=== PATIENT | male | born 1970 | race American Indian/Alaskan Native ===

== ENCOUNTER 2016-08-27 11:28 | Emergency (ER) | payer MEDICARE ==
[2016-08-27 11:31] VITALS: BMI 28.5
[2016-08-27 11:39] VITALS: TEMP 98.2
[2016-08-27] MEDS ORDERED: Lidocaine 1% Inj (20ml) SC STA (11:53)
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
[2016-08-27 15:32] VITALS: BP 125/64; PULSE 78; RESP 18; O2SAT 98
== END 2016-08-27 16:33 | disposition home or self-care (01) ==
LOC: ED 11:28
DX: S31.21XA Laceration without foreign body of penis, initial encounter (principal); V18.0XXA Pedal cycle driver injured in noncollision transport accident in nontraffic accident, initial encounter; Y92.89 Other specified places as the place of occurrence of the external cause